=== PATIENT | female | born 1980 | race Two or more races ===

== ENCOUNTER 2018-09-05 14:18 | Outpatient (CLI) | payer OTHER ==
[~2018-09-05 14:18] MED LIST: AMOX1TAB12 PO; PROCARDIA90 MG/BLIS; SYNTHROID50 MCG; TYLENOL 8 HOUR650 MG PO
== END 2018-09-06 12:26 | disposition home or self-care (01) ==
LOC: MAMO-SONO 14:18
DX: N64.4 Mastodynia (principal); Z12.31 Encounter for screening mammogram for malignant neoplasm of breast; N63.10 Unspecified lump in the right breast, unspecified quadrant; N63.20 Unspecified lump in the left breast, unspecified quadrant; N60.11 Diffuse cystic mastopathy of right breast

== ENCOUNTER → 2019-03-16 | Emergency (ER) | payer OTHER ==
[~2019-03-16] VITALS: Ht 152.4 cm; Wt 49.9 kg
== END | disposition left against medical advice (07) ==
LOC: ER 01:19
DX: Z53.20 Procedure and treatment not carried out because of patient's decision for unspecified reasons (principal)